=== PATIENT | male | born 2000 | race Caucasian/White ===

== ENCOUNTER 2022-01-20 12:31 | Emergency (ER) | payer OTHER, SELFPAY ==
[2022-01-20 12:48] VITALS: BP 140/86; PULSE 123; RESP 20; TEMP 36.9
--- NOTE | 2022-01-20 12:49 | ED.SKABFB ---
HPI - Skin/Abscess/Foreign Bdy General Chief complaint: Skin/Abscess/Foreign Body Stated complaint: tailbone pain Time Seen by Provider: 01/20/22 12:49 Source: patient Mode of arrival: ambulatory Limitations: no limitations History of Present Illness HPI narrative: 21-year-old male presents with mom with complaint of bump to base of tailbone that is painful when sitting. Reports when ambulatory it does not bother him. Noticed pain 3 to 4 days ago. Afebrile. Has a history of ingrown hairs. Reports that his sister has a history of pilonidal cyst. Patient sitting on exam table, does not appear to be in significant pain. All systems reviewed and negative except as noted above. Related Data Home Medications Medication Instructions Recorded Confirmed aripiprazole 5 mg tablet 5 mg PO DAILY 03/07/21 01/20/22 bupropion HCl 100 mg tablet,12 hr 100 mg PO DAILY 03/07/21 01/20/22 sustained-release guanfacine 1 mg PO DAILY 01/20/22 01/20/22 methylphenidate HCl [Concerta] 36 mg PO BID 01/20/22 01/20/22 Allergies Allergy/AdvReac Type Severity Reaction Status Date / Time No Known Allergies Allergy Verified 01/20/22 12:49 Review of Systems Review of Systems: CONSTITUTIONAL: Denies fever, chills, or sweats. EYES: Denies visual changes, redness, or discharge. ENT: Denies rhinorrhea, congestion, sore throat, or otalgia. CARDIOVASCULAR: Denies chest pain, palpitations, or edema. RESPIRATORY: Denies cough or dyspnea. GASTROINTESTINAL: Denies abdominal pain, nausea, vomiting, or diarrhea. GENITOURINARY: Denies dysuria or hematuria. SKIN: Denies rash or itching. Reports painful bump to base of tailbone. MUSCULOSKELETAL: Denies back pain, joint pain, or myalgia. NEUROLOGIC: Denies headache, numbness, or weakness. PSYCHIATRIC: Denies anxiety or depression. All other systems reviewed are negative, except as documented in HPI. [facility] Past Medical History Medical History (Updated 01/20/22 @ 13:00 by Carissa Marmolejo NP) Autism spectrum MDD (major depressive disorder), recurrent episode, severe Family History Family History Mother Hypertension Family history of elevated blood lipids Other Diabetes mellitus Social History Social History (Updated 03/07/21 @ 09:10 by Mary Beth Moses) Social History: Single Smoking status: Never smoker Second hand tobacco smoke exposure: No Alcohol intake: never Substance use: never Substance use type: does not use Gender identity (if verbalized by the patient): Male Comments At time of signature, agree with nursing past medical, surgical, social and family history. There is no relevant family history pertinent to the presenting complaint. Exam Narrative: GENERAL: This is a well-nourished, well-developed patient, in no apparent distress. HEAD: normocephalic, atraumatic. EYES: PERRL. Sclera clear/white. Vision is grossly intact. EARS: External ears normal NOSE: External nose normal THROAT: Mucous membranes moist, posterior pharynx clear. NECK: Neck supple, non-tender without lymphadenopathy, masses or thyromegaly. CARDIOVASCULAR: Regular rate and rhythm without murmurs, gallops, or rubs. RESPIRATORY: Clear to auscultation. Breath sounds equal bilaterally. No wheezes, rales, or rhonchi. To light SKIN: warm, Dry, intact with no rash, good texture and turgor. There is an area of induration to base of tailbone/left buttock that is approximately 3 to 4 cm in diameter. There is no significant erythema or warmth. There is no fluctuance on palpation. NEURO: awake, alert, and oriented to person, place and time. There were no obvious focal neurologic abnormalities. EXTREMITIES: Normal range of motion to all extremities. Course Course Level of Care: Express Care Visit Vital Signs Vital signs: Vital Signs Temperature 36.9 C 01/20/22 12:48 Pulse Rate 123 H 01/20/22 12:48 Respiratory Rate 20 01/20/22 12:
== END 2022-01-20 13:05 | disposition home or self-care (01) ==
PROVIDERS: Emergency Provider Nurse Practitioner Family; PCP Family Medicine
DX: L02.31 Cutaneous abscess of buttock (principal)
CPT/HCPCS: 99213; G0463